=== PATIENT | female | born 1945 | race Caucasian/White ===

== ENCOUNTER 2025-02-03 18:04 | Outpatient (OUT) | payer MEDICARE, OTHER, SELFPAY ==
--- OUTSIDE RECORDS SUMMARY | 2025-02-03 18:13 | XMS_ITS | Clinical Summary ---
Author Organization [facility] Address [address] [place] [address] Care Team Providers Care Wreath Inspector Name Role Phone Myriam Simmons MD Primary Care Provider [phone] Myriam Simmons MD Unavailable Adeel Hernandez LPN Unavailable [phone] Allergies Active AllergyReactionsCriticalityNoted DateCommentsSulfa AntibioticsUnknown, WhicufnarltQpir51/11/2016Sulfamethoxazole-BevivetontywZmckkek03/11/2016 TrimethoprimUnknown,YclmjcmklrbGsqw30/09/2021 Medications MedicationSigDispense QuantityRefillsLast FilledStart DateEnd DateStatus aspirin 81 MG chewable tablet Chew 81 mg 1 (one) time each day at the same time.Active Multiple Vitamins-Minerals (Hair Skin & Nails Advanced) tablet as directed OrallyActive lisinopril 20 MG tablet Indications:Type 2 diabetes mellitus with diabetic neuropathy, without long-term current use of insulin ([facility])Take 1 tablet (20 mg) by mouth in the morning. 90 tablet 1104Active atorvastatin (Lipitor) 10 MG tablet Indications:Type 2 diabetes mellitus with diabetic neuropathy, without long-term current use of insulin ([facility])Take 1 tablet (10 mg) by mouth Daily 90 tablet 1114Active semaglutide (Ozempic) 2 MG/1.5ML solution pen-injector Indications:Diabetic peripheral neuropathy associated with type 2 diabetes mellitus ([facility])Inject 0.5 mg under the skin 1 (one) time per week 4.5 mL //32303112/09/2025ctive Active Problems ProblemNoted DateDiagnosed DatePure rkbaophoqonnogbqallw92/ Assessment & Plan (12/09/2024 12:15 PM EDT): Herniated lumbar intervertebral disc03/12/2023Hepatic rierlqsjw22/27/2023 Assessment & Plan (12/31/2024 2:59 PM EDT): stable Assessment & Plan (09/10/2022 3:02 PM EDT): Stable and working on weight loss Type 2 diabetes mellitus with diabetic gfhoyoplze64/27/2023 Assessment & Plan (12/31/2024 2:59 PM EDT): Lab Results Component Value Date HGBA1C 6.1 (H) 12/09/2024 Toleratin g semaglutide .25 increase to .5 mg Assessment & Plan (09/10/2022 3:02 PM EDT): Diabetic protocols reviewed. Discussed and updated current management plan. Addressed barriers to care, diet, exercise plan and blood sugar testing. Education provided for mediations. Discussed complications which could include blindness, heart disease and kidney disease. Goal of A1C less then 7 and Blood pressure less then 130/80. Acquired hammer toe of left foot09/19/2020 Assessment & Plan (09/10/2022 3:03 PM EDT): stable Thyroid oscfod6607/17/2020 Assessment & Plan (09/10/2022 3:04 PM EDT): US is stable Multinodular goiter (nontoxic)01/17/2020 Assessment & Plan (12/31/2024 2:59 PM EDT): stable Orders: US thyroid; Future Seborrheic phlqjkeyf78/17/2020 Assessment & Plan (09/10/2022 3:05 PM EDT): stable Hvyghgohauzwhjoq43/17/2020 Assessment & Plan (09/10/2022 3:05 PM EDT): Per hematology. Acquired hallux uyefpjq1211/12/2017 Assessment & Plan (09/10/2022 3:03 PM EDT): stable Other chronic pain10/23/2017 Assessment & Plan (09/10/2022 3:02 PM EDT): Per pain management. Still with symptoms of pain with laying down DDD (degenerative disc disease), wuwvpn6008/18/2017 Assessment & Plan (09/10/2022 3:03 PM EDT): Undergoing pain management injecctions Bilateral carpal tunnel jthmblvy30/31/2017 Assessment & Plan (09/10/2022 3:01 PM EDT): Stable at this time Elevated liver ibxxpsg6805/01/2016 Assessment & Plan (09/10/2022 3:05 PM EDT): stable Calculus of mnjzuz5802/06/2016 Overview (09/10/2022): right 9 x 9 x 4 mm proximal UPJ passed spontaneously 2015 Incidental left 2-[address] March 2016. Currently left lower quadrant/inguinal pain. This is worse going from a sitting to standing position and better with activity andwith complete rest. This is not consistent with renal colic and highly unlikely to be related to the nonobstructing stone seen on CT. Plan to get a follow-up KUB in 1 year. 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 Stable on followup CT June 2015. History of jmvtkmnturqq83/16/2016 Assessment & Plan (12/09/2024 12:15 PM EDT): Rhlhfefokwqitz13/18/2016 Assessment & Plan (09/10/2022 3:04 PM EDT): stable Diabetic peripheral neuropathy associated with type 2 diabetes mellitus 09/27/2015 Assessment & Plan (12/10/2024 7:03 AM EDT): Goodbs control could benefit from weight loss due to multiple med conditions Orders: semaglutide (Ozempic) 2 MG/1.5ML solution pen-injector; Inject 0.5 mg under the skin 1 (one) time per week Comprehensive metabolic panel; Future CBC and differential; Future Lipid panel; Future Microalbumin / creatinine urine ratio; Future Hemoglobin A1c; Future Assessment & Plan (09/10/2022 3:01 PM EDT): Stable with treatment Cxymabuiju48/10/2015 Assessment & Plan (09/10/2022 3:04 PM EDT): Dexascan readings every 2 years. Continue weight bearing activities as tolerated Essential dgwqyrtywmxl59/23/2015 Assessment & Plan (12/10/2024 7:03 AM EDT): Good control Assessment & Plan (09/10/2022 3:02 PM EDT): Discussed current management plan and goal BP less then 130/80. Discussed diet, exercise and complications of uncontrolled blood pressure. Importance of weight management with a goal BMI less then 27discussed. Barriers to care and medication compliance discussed. Patient voices understanding of meds. Resolved Problems ProblemNoted DateDiagnosed DateResolved DateBMI 40.0-44.9, adult09/29/2018 09/10/2022 Encounters DateTypeDepartmentCare XdqlUkbzqtexhlf75/10/2025Telephone [facility] [address] [place] [phone] Myriam Simmons MD 01/18/2025Telephone [facility] [address] [facility] [place] [phone] Myriam Simmons MD 01/11/2025Telephone [facility] [address] [place] [phone] Megan Cohen DPM Advice Only (FH POD No show x 2 )12/30/2024 1:40 PM EDTOffice Visit [facility] [address] [place] [address] Myiram Simmons MD Hepatic cirrhosis, unspecified hepatic cirrhosis type, unspecified whether ascites present (HCC) (Primary Dx); Type 2 diabetes mellitus with diabetic neuropathy, without long-term current use of insulin (HCC); Multinodular goiter (nontoxic); Encounter for eipvvybbdwrs54/16/8616Tajhxb67/02/2025Orders Only [facility] [address] [place] [phone] Myriam Simmons MD 12/15/2024Patient Outreach [facility] [address] [place] [address] Adeel Hernandez LPN 12/10/2024Telephone [facility] [address] [facility] [place] [address] Myriam Simmons MD 12/10/2024Results Follow-Up [address] [place] [address] Myriam Simmons MD Comprehensive metabolic panel, CBC and differential, Lipid panel, Additional followed-up results: 11:00 AM EDTOffice Visit [facility] [address] [facility] [place] [address] Myriam Simmons MD Routine general medical examination at a health care facility (Primary Dx); Essential hypertension ; Diabetic peripheral neuropathy associated with type 2 diabetes mellitus (HCC); Pure hypercholesterolemia ; History of hysterectomy; Bowel habit hznewxi7312/09/2024amboo flowsheet [facility] [address] [place] [address] Myriam Simmons MD 12/09/2024Travelfrom Last 3 Months Immunizations ImmunizationAdministration DatesNext DueInfluenza, High Dose Seasonal, Preservative Free12/08/2023,12/30/2019,01/16/2017,11/27/2015,01/24/2015, 01/17/2014,05/10/2013Influenza, High-dose Seasonal, Quadrivalent, Preservative Free12/30/2024,12/19/2021,03/14/2021,01/20/2018Moderna SARS-CoV-2 Vaccination 06/14/2020,1Pneumococcal Conjugate PCV 13103/26/2014Pneumococcal Polysaccharide HLJU7912Pneumococcal, Zedaoyevwwd40/06/2423SCZJ-FNG-7 (COVID-19) vaccine, mRNA, spike protein, LNP, PF, ethan-sucrose, 30 mcg/0.3 mL 12/08/20235435BGUK-KPN-9 (COVID-19) vaccine, mRNA, spike protein, LNP, bivalent, PF 12/19/2021Zoster, Dpikxzxqkiv29/22/2023,06/24/2022 Family History RelationNameStatusCommentsFatherDeceasedMotherDeceased Social History Tobacco UseTypesPacks/DayYears UsedDateSmoking Tobacco: NeverSmokeless Tobacco: Never Tobacco Cessation:Counseling Given: Not Answered Alcohol UseStandard Drinks/WeekCommentsNot Currently0 (1 standard drink = 0.6 oz pure alcohol)caffeine: 1-2 cups per day, pepsi zeroAUDIT-CAnswerDate RecordedQ1: How often do you have a drink containing alcohol?Never09/10/2022Q2: How many drinks containing alcohol do you have on a typical day when you are drinking? Patient does not drink09/10/2022Q3: How often do you have six or more drinks on one occasion?Never09/10/2022HQ-2AnswerDate RecordedPatient Health Questionnaire-2 Izopq956CommentsUnknownSex and Gender InformationValueDate RecordedSex Assigned at BirthNot on fileLegal SexFemale 05/29/2022 7:10 PM EDTGender IdentityNot on fileSexual OrientationNot on file Last Filed Vital Signs Vital SignReadingTime TakenCommentsBlood Roialprc675/7612/30/2024 1:46 PM EDT Gkpyr056612/30/2024 1:46 PM XVVNlvpcajwrnl37 ??C (98.6 ??F)03/12/2023 1:59 PM EST Respiratory Hygh3730 1:46 PM EDTOxygen Xxmojwcecz70%12/30/2024 1:46 PM EDTInhaled Oxygen Concentration--Owactw60.9 kg (196 lb)12/30/2024 1:46 PM EDT Yrdngd209.9 cm (4' 11 )12/30/2024 1:46 PM EDTBody Mass Index39.5912/30/2024 1:46 PM EDT Plan of Treatment DateTypeDepartmentCare Team (Latest Contact Info)Kmdalpjlqkx68/10/2025 1:30 PM ESTOffice Visit [facility] [address] [facility] [address] [place] [address] Rama Ferrer MD [address] [facility] [address] [place] [address] 03/01/2025 1:40 PM ESTOffice Visit [facility] [address] [place] [phone] Myriam Simmons MD [address] [place] [address] Health MaintenanceDue DateLast DoneCommentsCOVID-19 Vaccine ( season) , 12/19/2021, 09/05/2021, Additional history existsDiabetes: Urine Protein Mphrdehmm65, 05/29/2022, 02/27/2021, Additional history existsDiabetes: Hemoglobin A1C, 09/04/2023, 06/04/2023, Additional history existsDiabetes: Retinopathy Ypawrbzvo83/24/2026 04/09/2024, 03/11/2023, 11/19/2017Medicare Annual Wellness (AWV)12/09/2025 12/09/2024, 12/08/2023, 12/08/2023, Additional history existsPneumococcal Vaccine: 65+ VvtitVgyhfrgwe92/10/2015, 01/20/2015, 11/11/2011Influenza Vaccine Pdcyntedz14/16/2025, 12/08/2023, 12/19/2021, Additional history exists Procedures Procedure NamePriorityDate/TimeAssociated DiagnosisCommentsTSH W/REFLEX TO FT4 Efdvjxi2612/09/2024 11:33 AM EDT Bowel habit changes HEMOGLOBIN I4EHbtende55/25/2025 11:33 AM EDT Diabetic peripheral neuropathy associated with type 2 diabetes mellitus (HCC) LIPID BYUWMUcrisqr67/25/2025 11:33 AM EDT Diabetic peripheral neuropathy associated with type 2 diabetes mellitus (HCC) CBC (INCLUDES DIFF/PLT)Sdadbcj3312/09/2024 11:33 AM EDT Diabetic peripheral neuropathy associated with type 2 diabetes mellitus (HCC) COMPREHENSIVE METABOLIC JMIWWCaldtua09/25/2025 11:33 AM EDT Diabetic peripheral neuropathy associated with type 2 diabetes mellitus (HCC) DIABETIC RETINOPATHY SCREENING - OU - BOTH TRJWPginbst70/24/2025 8:32 AM EST MICROALBUMIN / CREATININE URINE ENPJZLovutsc26/23/2024 4:02 PM EDT Type 2 diabetes mellitus with diabetic neuropathy, without long-term current use of insulin (HCC) from Last 3 Months or Most Recently Relevant to Health Maintenance Results * TSH W/REFLEX TO FT4 (12/09/2024 11:33 AM EDT)ComponentValueRef RangeTest MethodAnalysis TimePerformed AtPathologist SignatureTSH W/REFLEX TO FT41.84 0.40 - 4.50 mIU/LQUESTSpecimen (Source)Anatomical Location / Laterality Collection Method / VolumeCollection TimeReceived Time12/09/2024 11:33 AM EDT 12/09/2024 11:33 AM EDT Narrative [facility] - 12/10/2024 7:33 AM EDT COLLECTION KIT GIVEN TO PATIENT. PATIENT ADVISED TO RETURN. Resulting Agency Comment Performing Organization Information ?Site ID: QPT ?Name: [employer] [facility] ?Address: [address] [place] [address], [address] [place] [phone] ?Director: Sharad Suarez MD Authorizing ProviderResult TypeResult StatusMyriam Simmons MDLAB BLOOD ORDERABLES Final ResultPerforming OrganizationAddressCity/State/ZIP CodePhone Number [facility] * (ABNORMAL) CBC and differential (12/09/2024 11:33 AM EDT)ComponentValueRef RangeTest MethodAnalysis TimePerformed AtPathologist SignatureWHITE BLOOD CELL COUNT5.53.8 - 10.8 Thousand/uLQUESTRED BLOOD CELL COUNT4.713.80 - 5.10 Million/oZNMPGUKZTGZWGQLQ94.411.7 - 15.5 g/sEWUKUFWLHYAYEBGG67.735.0 - 45.0 % USIOCAQH61.980.0 - 100.0 xAFPGEDYAE32.627.0 - 33.0 naAWBJEJVOP29.232.0 - 36.0 g/dLQUESTComment: For adults, a slight decrease in the calculated MCHC value (in the range of 30 to 32 g/dL) is most likely not clinically significant; however, it should be interpreted with caution in correlation with other red cell parameters and the patient's clinical condition. RDW14.311.0 - 15.0 %QUESTPLATELET EZPKJ298(L)140 - 400 Thousand/pHRSCEQNAU03.8 7.5 - 12.5 fLQUESTABSOLUTE NEUTROPHILS3,0801,500 - 7,800 cells/uLQUESTABSOLUTE LYMPHOCYTES1,014530 - 3,900 cells/uLQUESTABSOLUTE HOIATBIIP141025 - 950 cells/uL QUESTABSOLUTE BOXCCMMMKMO62294 - 500 cells/uLQUESTABSOLUTE ZDADNFAVQ335 - 200 cells/mCTAMLEYHUSRVTMHEA75%XOTLSMVXZPTTMMTP56.9%QUESTMONOCYTES6.8%QUEST EOSINOPHILS2.6%QUESTBASOPHILS0.7%QUESTSpecimen (Source)Anatomical Location / LateralityCollection Method / VolumeCollection TimeReceived TimeBloodVenous blood specimen / Kazhksb0712/09/2024 11:33 AM EDT12/09/2024 11:33 AM EDT Narrative [facility] - 12/10/2024 7:33 AM EDT COLLECTION KIT GIVEN TO PATIENT. PATIENT ADVISED TO RETURN. Resulting Agency Comment Performing Organization Information ?Site ID: QPT ?Name: [employer] [facility] ?Address: [address] [place] [address], [address] [place] [phone] ?Director: Sharad Suarez MD Authorizing ProviderResult TypeResult StatusMyriam Simmons MDLAB BLOOD ORDERABLES Final ResultPerforming OrganizationAddressCity/State/ZIP CodePhone Number [facility] * (ABNORMAL) Hemoglobin A1c (12/09/2024 11:33 AM EDT)ComponentValueRef RangeTest MethodAnalysis TimePerformed AtPathologist SignatureHemoglobin A1C6.1(H)<5.7 % QUESTComment: For someone without known diabetes, a hemoglobin A1c value between 5.7% and 6.4% is consistent with prediabetes and should be confirmed with a follow-up test. For someone with known diabetes, a value <7% indicates that their diabetes is well controlled. A1c targets should be individualized based on duration of diabetes, age, comorbid conditions, and other considerations. This assay result is consistent with an increased risk of diabetes. Currently, no consensus exists regarding use of hemoglobin A1c for diagnosis of diabetes for children. Specimen (Source)Anatomical Location / LateralityCollection Method / Volume Collection TimeReceived TimeBloodVenous blood specimen / Kyoynrp8312/09/2024 11:33 AM EDT12/09/2024 11:33 AM EDT Narrative [facility] - 12/10/2024 7:33 AM EDT COLLECTION KIT GIVEN TO PATIENT. PATIENT ADVISED TO RETURN. Resulting Agency Comment Performing Organization Information ?Site ID: QPT ?Name: [employer] [facility] ?Address: [address] [place] [address], [address] [place] [phone] ?Director: Sharad Suarez MD Authorizing ProviderResult TypeResult StatusMyriam Simmons MDLAB BLOOD ORDERABLES Final ResultPerforming OrganizationAddressCity/State/ZIP CodePhone Number [facility] * Lipid panel (12/09/2024 11:33 AM EDT)ComponentValueRef RangeTest Method Analysis TimePerformed AtPathologist SignatureCHOLESTEROL, VAFNF085<200 mg/dL QUESTHDL MGIAJNRKGYL95> OR = 50 mg/vZAULHKZNZAQXGOMTYHN885<150 mg/dLQUESTLDL HJTLORLKDBX40rk/dL (calc)QUESTComment: Reference range: <100 Desirable range <100 mg/dL for primary prevention; <70 mg/dL for patients with CHD or diabetic patients with > or = 2 CHD risk factors. LDL-C is now calculated using the Kem-Filiberto calculation, which is a validated novel method providing better accuracy than the Friedewald equation in the estimation of LDL-C. Kem GARRISON et al. MANOHAR. 2013;310(19): 4989-6756 (http://education.Blossom.Freebeepay/faq/NDD994) CHOL/HDLC RATIO2.5<5.0 (calc)QUESTNON HDL COYLMHWMIJE26<130 mg/dL (calc)QUEST Comment: For patients with diabetes plus 1 major ASCVD risk factor, treating to a non-HDL-C goal of <100 mg/dL (LDL-C of <70 mg/dL) is considered a therapeutic option. Specimen (Source)Anatomical Location / LateralityCollection Method / Volume Collection TimeReceived TimeBloodVenous blood specimen / Yltcedd0712/09/2024 11:33 AM EDT12/09/2024 11:33 AM EDT Narrative [facility] - 12/10/2024 7:33 AM EDT COLLECTION KIT GIVEN TO PATIENT. PATIENT ADVISED TO RETURN. Resulting Agency Comment Performing Organization Information ?Site ID: QPT ?Name: [employer] [facility] ?Address: [address] [place] [address], [address] [place] [phone] ?Director: Sharad Suarez MD Authorizing ProviderResult TypeResult StatusMyriam BLOCK BLOOD ORDERABLES Final ResultPerforming OrganizationAddressCity/State/ZIP CodePhone Number [facility] * Comprehensive metabolic panel (12/09/2024 11:33 AM EDT)ComponentValueRef Range Test MethodAnalysis TimePerformed AtPathologist YzinnkfndLsrwzqb7996 - 99 mg/dLQUESTComment: ? Fasting reference interval UEN160 - 25 mg/dLQUESTCreatinine0.770.60 - 1.00 mg/uUAQBIAOHFR30> OR = 60 mL/min/1.45o7FYYDYKJJ/CREATININE RATIOSEE NOTE: (calc)QUESTComment: ?? Not Reported: BUN and Creatinine are within ?? reference range. ? Tlqjav552612 - 146 mmol/LQUESTPotassium, Bld4.23.5 - 5.3 mmol/OORLLHHeynwndc276 98 - 110 mmol/LQUESTCarbon Hsvvoex6585 - 32 mmol/TURLPQYugoeyh14.08.6 - 10.4 mg/dLQUESTPROTEIN, TOTAL7.06.1 - 8.1 g/dLQUESTALBUMIN4.33.6 - 5.1 g/dLQUEST GLOBULIN2.71.9 - 3.7 g/dL (calc)QUESTALBUMIN/GLOBULIN RATIO1.61.0 - 2.5 (calc) QUESTBILIRUBIN, TOTAL1.20.2 - 1.2 mg/dLQUESTALKALINE USUYKCKGELY1923 - 153 U/L RUHNDACM7433 - 35 U/DYUSJRHJY699 - 29 U/LQUESTSpecimen (Source)Anatomical Location / LateralityCollection Method / VolumeCollection TimeReceived TimeBlood Venous blood specimen / Ojaxxhw0112/09/2024 11:33 AM EDT12/09/2024 11:33 AM EDT Narrative [facility] - 12/10/2024 7:33 AM EDT COLLECTION KIT GIVEN TO PATIENT. PATIENT ADVISED TO RETURN. Resulting Agency Comment Performing Organization Information ?Site ID: QPT ?Name: [facility] ?Address: [address] [place] [address], [address] [place] [phone] ?Director: Sharad Suarez MD Authorizing ProviderResult TypeResult StatusMyriam Simmons MDLAB BLOOD ORDERABLES Final ResultPerforming OrganizationAddressCity/State/ZIP CodePhone Number [facility] * Diabetic Retinopathy Screening - OU - Both Eyes (04/09/2024 8:32 AM EST) Anatomical RegionLateralityModalityHeadOther Narrative Authorizing ProviderResult TypeResult StatusMyriam Simmons MDOPHTH PHOTOGRAPHY Final Result * (ABNORMAL) Microalbumin / creatinine urine ratio (12/08/2023 4:02 PM EDT) ComponentValueRef RangeTest MethodAnalysis TimePerformed AtPathologist SignatureCREATININE, RANDOM AGCJH1319 - 275 mg/dLQUESTALBUMIN, URINE3.4See Note: mg/dLQUESTComment: Reference Range: Reference Range Not established ALBUMIN/CREATININE RATIO, RANDOM URINE52(H)<30 mg/g creatQUESTComment: The ADA defines abnormalities in albumin excretion as follows: Albuminuria Category ?Result (mg/g creatinine) Normal to Mildly increased <30 Moderately increased ? 30-299 Severely increased > OR = 300 The ADA recommends that at least two of three specimens collected within a 3-6 month period be abnormal before considering a patient to be within a diagnostic category. Specimen (Source)Anatomical Location / LateralityCollection Method / Volume Collection TimeReceived TimeUrineUrine specimen obtained by clean catch procedure / Dszrdxa7512/08/2023 4:02 PM EDT12/09/2023 6:07 AM EDT Narrative [facility] - 12/09/2023 2:13 PM EDT SPLIT 12/08/2023 FROM [id number] Resulting Agency Comment Performing Organization Information ?Site ID: QPT ?Name: [facility] ?Address: [address] [place] [phone] ?Director: Sharad Suarez MD Authorizing ProviderResult TypeResult Maureen Porter [facility] URINE ORDERABLES Final ResultPerforming OrganizationAddressCity/State/ZIP CodePhone Number [facility] from Last 3 Months or Most Recently Relevant to Health Maintenance Insurance Care Teams Team MemberRelationshipSpecialtyStart DateEnd Myriam Simmons MD [address] [place], [place] [phone] PCP - GeneralFamily Medicine09/09/22 Myriam Simmons MD [address] [place], [place] [phone] PCP - [facility]05/16/23 Adeel Hernandez LPN [id number] [facility] [address] [place] [id number] Licensed Practical NurseFamily Hrsymvcj48/1/25
--- OUTSIDE RECORDS SUMMARY | 2025-02-03 18:13 | XMS_ITS | Clinical Summary ---
Author Organization Le[place] tem Address [id number] [address] [place] [address] Care Team Providers Care Heel Emery Buffer Name Role Phone Myriam Simmons MD Primary Care Provider [phone] Allergies Active AllergyReactionsCriticalityNoted DateComments Sulfamethoxazole-Ehybidujslyb74/11/2016Sulfa (Sulfonamide Antibiotics)01/26/2016 Medications MedicationSigDispense QuantityRefillsLast FilledStart DateEnd DateStatus metFORMIN (GLUCOPHAGE) 500 mg tablet Take 2 tablets (1,000 mg total) by mouth in the morning and 2 tablets (1,000 mg total) in the evening. Take with meals.Active aspirin 81 mg chewable tablet Chew 1 tablet (81 mg total) and swallow in the morning.Active potassium gluconate 550 mg (90 mg) tablet Take 2 mEq by mouth daily.Active MULTIVITAMIN WITH MINERALS (HAIR,SKIN AND NAILS ORAL) Take 1 tablet by mouth once daily.Active cholecalciferol, vitamin D3, 25 mcg (1,000 unit) capsule Take 1,000 Units by mouth daily.Active atorvastatin (LIPITOR) 10 mg tablet 06/24/2020ctive lisinopriL (PRINIVIL,ZESTRIL) 20 mg tablet Take 1 tablet (20 mg total) by mouth in the morning.Active ibuprofen (ADVIL,MOTRIN) 200 mg tablet Take 200 mg by mouth every 6 (six) hours as needed for pain.Active CEPHalexin (KEFLEX) 500 mg capsule Take 1 capsule (500 mg total) by mouth in the morning and 1 capsule (500 mg total) before bedtime. Do all this for 5 days. 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 Stable on followup CT June 2015. Calculus of gpnpro3502/06/2016 Overview (08/13/2016): right 9 x 9 x 4 mm proximal UPJ passed spontaneously 2015 Incidental left 2-[address] March 2016. Currently left lower quadrant/inguinal pain. Thisis worse going from a sitting to standing position and better with activity and with complete rest.This is not consistent with renal colic and highly unlikely to be related to the nonobstructing stone seen on CT. Plan to get a follow-up KUB in 1 year. Encounters DateTypeDepartmentCare VmgeBxcqqvylrer76/06/2025Telephone [facility], A Department of [address] [phone] Consultants, [facility] 01/19/2025 8:25 AM EST - 01/19/2025 2:04 PM [facility] [address] [place] [address] Nevaeh Cardozo MD Diarrhea, unspecified type (Primary Dx); Acute cystitis with hematuria; Abnormal CT scan Discharge Disposition: Home01/19/2025Travelfrom Last 3 Months Family History Medical HistoryRelationNameCommentsHeart diseaseFatherCancerMotherRelationName StatusCommentsFatherDeceasedMotherDeceased Social History Tobacco UseTypesPacks/DayYears UsedDateSmoking Tobacco: NeverSmokeless Tobacco: NeverAlcohol UseStandard Drinks/WeekCommentsNo0 (1 standard drink = 0.6 oz pure alcohol)ChildcareAnswerDate VddbgfwfQgrrkrgwuZvcjrmg90/12/2019EmploymentAnswer Date ReiqpkfnUfdqikknrpMefekgm98/12/2019Hunger ScreeningAnswerDate Recorded Within the past 12 months we worried whether our food would run out before we got money to buy more.Never True01/19/2025Within the past 12 months the food we bought just didn't last and we didn't have money to get more.Never True 01/19/2025Purpose - LifeAnswerDate RecordedPurpose and direction in lifeUnknown 1CommentsNoSex and Gender InformationValueDate RecordedSex Assigned at BirthNot on fileLegal XkiKokyyi17/06/2015 11:36 AM EDTGender IdentityNot on fileSexual OrientationNot on file Last Filed Vital Signs Vital SignReadingTime TakenCommentsBlood Vtzmgtla662/7601/19/2025 12:46 PM EST Rppio347101/19/2025 12:46 PM WHKMujwnpanrdq23.5 ??C (97.7 ??F)01/19/2025 8:33 AM ESTRespiratory Arqt103303/21/2024 12:46 PM ESTOxygen Xpzwghtqjs78%01/19/2025 12:46 PM ESTInhaled Oxygen Concentration--Wsezis24.2 kg (190 lb)01/19/2025 8:33 AM EST Bzefyy641.4 cm (5')01/19/2025 8:33 AM ESTBody Mass Index37. 8:33 AM EST Plan of Treatment Health MaintenanceDue DateLast DoneCommentsDepression Tnmooqmlg00/23/1958 DTaP,Tdap and Td Vaccines (1 - Tdap)1964Fall Risk Neqbpvznc16/23/2011RSV ( or age 60+ yrs) (1 - 1-dose 75+ series)2020OVID-19 Vaccine (7 - 2024- season)5012/08/2023, 12/19/2021, 09/05/2021, Additional history existsTobacco Lcgvpywml31Zoster (Shingles) VaccineCompleted 09/05/2022, 06/24/2022Influenza OwdsmvmCqblweseb61/16/2025, 12/08/2023, 12/19/2021, Additional history exists Medical Devices ImplantedTypeAreaManufacturerDevice IdentifierShelf Expiration DateModel / Serial / LotLens 21.5 Diopter - [id number] Implanted:Qty: 1 [facility] 09/10/2016 [facility] [employer] [id number] / [id number] / Lens 22.0 Diopter - [id number] Implanted:Qty: 1 on 10/15/2016 by Nevaeh Pimentel MD at [facility]: [id number] / [id number] / Procedures Procedure NamePriorityDate/TimeAssociated DiagnosisCommentsPOCT NURSING URINE MACROSCOPIC GIPinnprm89/05/2025 12:[address] ABDOMEN AND PELVIS W KXCNLFNT42/05/2025 10:44 AM EST SARS/FLU A+B/RSV BY NAAT/MOLECULAR (M4RT COLLECTION TUBE)STAT103/21/2024 9:21 AM EST YPYPKCXUVUTXG45/05/2025 9:08 AM EST CBC WITH AUTO NZEIOZWCFVCRKZPF27/05/2025 9:08 AM EST COMPREHENSIVE METABOLIC JJWKRHGHO58/05/2025 9:08 AM EST HMPGSQGTEW44/05/2025 9:08 AM EST EXTRA TUBES BLUE BFAPhrrexb87/05/2025 9:05 AM EST EXTRA IXXCVPlvyjoa83/05/2025 9:05 AM EST from Last 3 Months Results * (ABNORMAL) POCT Nursing Urine Macroscopic UA (01/19/2025 12:47 PM EST) ComponentValueRef RangeTest MethodAnalysis TimePerformed AtPathNorthern Inyo Hospital Urine Specific Gravity1.0201.010, 1.015, 1.020, 1.6453701/19/2025 12:50 PM ESTPROPROVID[facility] Urine Leukocyte Esterase Small(A)Toderhaj14/05/2025 12:50 PM ESTPROPROVIDENCE [facility] Urine NitritePositive(A)Ovbkudyv23/05/2025 12:50 PM ESTPROPROVIDENCE [facility] Urine pH5.55.0, 6.0, 6.5, 7.0, 7.5, 8.0, 8.5, 5.5 01/19/2025 12:50 PM ESTPROPROVIDENCE [facility] Urine Knzmwny10 mg/dL(A)Sbjmoyez25/05/2025 12:50 PM ESTPROMEDIMENLO [facility]ARK [facility] Urine QnbwrzzWgrtvleoZffvatkq17/05/2025 12:50 PM ESTPROPROVIDENCE [facility] Urine EwyunypTdgoiaukRlcufqwr40/05/2025 12:50 PM ESTPROPROVIDENCE [facility] Urine Urobilinogen0.2 E.U./dL01/19/2025 12:50 PM ESTPROPROVIDENCE [facility] Urine BilirubinNegativeNegative 01/19/2025 12:50 PM ESTPAR[facility]ALTH Urine Blood/HGB Trace(A)Ctsqyxtr01/05/2025 12:50 PM [facility] Specimen (Source)Anatomical Location / LateralityCollection Method / Volume Collection TimeReceived QeabCmfnt66/05/2025 12:47 PM EST01/19/2025 12:50 PM EST Narrative Authorizing ProviderResult TypeResult StatusSusan E Chehade MDPOINT OF CARE TEST ORDERABLESFinal ResultPerforming OrganizationAddressCity/State/ZIP CodePhone Number [facility] [address] [place] [address], [place] * CT abdomen and pelvis with contrast (01/19/2025 10:44 AM EST)Anatomical Region LateralityModalityBody, Abdomen, Body CoveraN/AComputed TomographySpecimen (Source)Anatomical Location / LateralityCollection Method / VolumeCollection TimeReceived Time01/19/2025 10:47 AM EST Narrative 01/19/2025 10:54 AM EST CLINICAL INFORMATION: lower abd cramping, diarrhea TECHNIQUE: CT ABDOMEN AND PELVIS W CONT CT images of the abdomen and pelvis are obtained. Intravenous contrast was administered. Comparisonis made prior exam dated 04/05/2016. Limited images lung bases are clear. There are varices noted near the gastroesophageal junction which are not apparent on prior exam. There is questionable cirrhotic hepatic morphology with slightly nodular contour, primarily along caudal. Hypoattenuationwithin the cephalad aspect of the SMV just caudal to the portal vein noted most consistent with thrombus. Portal vein otherwise opacifies normally. Distal vessels appear to enhance normally as well. SMA and celiac show atherosclerotic changes without enhancement abnormality. There is a 5.9 cm cystic-appearing lesion within the left adnexa with solitary calcification. Although most likely benign,pelvic ultrasound recommended for further evaluation. Colonic diverticula present without appreciable wall thickening or pericolonic stranding. No gastric distention seen. Patient is postcholecystectomy. Moderate to severe thoracolumbar degenerative changes appreciated. Anterior abdominalhernia noted without bowel incarceration. IMPRESSION: Nonocclusive thrombus within cephalad aspect of the SMV. 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 Please correlate clinically. 5.9 cm left adnexal cyst. Pelvic ultrasound recommended. Diverticulosis. All CT scans at this facility use dose modulation, iterative reconstruction, and/or weight based dosing when appropriate to reduce radiation dose to as low as reasonably achievable. Finalized by Suleman Pope MD on 01/19/2025 10:54 AM Procedure Note Suleman Pope MD - 01/19/2025 CLINICAL INFORMATION: lower abd cramping, diarrhea TECHNIQUE: CT ABDOMEN AND PELVIS W CONT CT images of the abdomen and pelvis are obtained. Intravenous contrast was administered. Comparison is made prior exam dated 04/05/2016. Limitedimages lung bases are clear. There are varices noted near thegastroesophageal junction which are not apparent on prior exam. There isquestionable cirrhotic hepatic morphology with slightly nodular contour, primarilyalong caudal. Hypoattenuation within the cephalad aspect of the SMV justcaudal to the portal vein noted most consistent with thrombus. Portal veinotherwise opacifies normally. Distal vessels appear to enhance normally aswell. SMA and celiac show atherosclerotic changes without enhancementabnormality. There is a 5.9 cm cystic-appearing lesion within the leftadnexa with solitary calcification. Although most likely benign, pelvicultrasound recommended for further evaluation. Colonic diverticula presentwithout appreciable wall thickening or pericolonic stranding. No gastricdistention seen. Patient is postcholecystectomy. Moderate to severethoracolumbar degenerative changes appreciated. Anterior abdominal hernianoted without bowel incarceration. IMPRESSION: Nonocclusive thrombus within cephalad aspect of the SMV. 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 5.9 cm left adnexal cyst. Pelvic ultrasound recommended. Diverticulosis. All CT scans at this facility use dose modulation, iterativereconstruction, and/or weight based dosing when appropriate to reduceradiation dose to as low as reasonably achievable. Finalized by Suleman Pope MD on 01/19/2025 10:54 AM Authorizing ProviderResult TypeResult StatusSuemmanuel Cardozo MDALL[facility]HE[facility] ORDERABLES Final Result * SARS/FLU A+B/RSV by NAAT/Molecular (M4RT Collection Tube) (01/19/2025 9:21 AM EST)ComponentValueRef RangeTest MethodAnalysis TimePerformed AtPathologist SignatureFLU A ZVVVkdyuhbeEgqeohgr50/05/2025 10:45 AM ESTPROSAN GABRIEL VALLEY MEDICAL CENTERFLU B GNNHuguyapvUrwrxnyy49/05/2025 10:45 AM ESTMARION HOSPITALRSV BY YTUWbjicwosJnynvara49/05/2025 10:45 AM EST [facility] COV 2 BY PCRNot DetectedNot Detected 01/19/2025 10:45 AM [facility]USpecimen (Source) Anatomical Location / LateralityCollection Method / VolumeCollection Time Received TimeSwabNasopharyngeal structure / Tkcqazv0701/19/2025 9:21 AM EST 01/19/2025 9:57 AM EST Narrative [facility] - 01/19/2025 10:45 AM EST The Xpert Xpress SARS-CoV-2/Flu/RSV Plus test is a rapid, multiplexed real-time RT-PCR test intended for the simultaneous qualitative detection and differentiation of SARS-CoV-2, influenza A, influenza B and respiratory syncytial virus (RSV) viral RNA from individuals suspected of respiratory viral infection consistent with COVID-19 by Their healthcare provider. This test has not been validated in asymptomatic patients. The Xpert Xpress SARS-CoV-2 test is intended for use by qualified and trained operators who are performing tests using either [employer] DX or [employer] systems and is limited to laboratories that meet the CLIA requirements to perform high and moderate complexity tests. The Xpert Xpress SARS-CoV-2/Flu/RSV Plus is only for use under the Food and Drug Administration's Emergency Use Authorization. Results are for the simultaneous detection and differentiation of SARS-CoV-2, influenza A, influenza B and RSV nucleic acids in clinical specimens. SARS-CoV-2, influenza A, influenza B and RSV RNA identified by this test are generally detectable in upper respiratory samples during the acute phase of infection. Positive results are Indicative of the presence of the identified virus, but do not rule out bacterial infection or co-infection with other pathogens not detected by this test. Clinical correlation with patient history and other diagnostic information is necessary to determine patient infection status. The agent detected may not be the definite cause of disease. Negative results do not preclude SARS-CoV-2, influenza A, influenza B and RSV infection and should not be used as the sole basis for treatment or other patient management decisions. Negative results must be combined with clinical observations, patient history and epidemiological information. An Invalid result may occur with specimen-associated inhibition unable to be resolved with specimen repeat. Fact Sheet for Healthcare Providers: ?? https://www.Promoter.io.gov/media/060991/download ? Fact Sheet for Patients: ?? https://www.Promoter.io.gov/media/472201/download ?? Authorizing ProviderResult TypeResult StatusSusan E Chehade MDMICROBIOLOGY - GENERAL ORDERABLESFinal ResultPerforming OrganizationAddressCity/State/ZIP Code Phone Number [facility] [address] [place] [address], * (ABNORMAL) CBC auto differential (01/19/2025 9:08 AM EST)ComponentValueRef RangeTest MethodAnalysis TimePerformed AtPathologist SignatureWBC5.64 - 11 X10^9/L103/21/2024 9:18 AM [facility]OSPITALRBC Count4.90 3.8 - 5.2 X10^12/L103/21/2024 9:18 AM [facility] Rfwdvqrjgo40.711.7 - 15.5 g/dL01/19/2025 9:18 AM ESTMARION HOSPITALHematocrit44.435 - 47 %01/19/2025 9:18 AM [facility]ITALMCV9180 - 100 fL01/19/2025 9:18 AM [facility]ITALMCH30.027 - 34 pg01/19/2025 9:18 AM [facility]ITALMCHC33.032 - 36 g/dL01/19/2025 9:18 AM ESTMARION HOSPITALRDW14.811.5 - 15 %01/19/2025 9:18 AM [facility] HOSPITALPlatelet Jatom431(L)150 - 450 X10^9/L103/21/2024 9:18 AM EST [facility]ITALMPV9.97 - 12 fL01/19/2025 9:18 AM EST [facility]ITALNeutrophils %67.2%01/19/2025 9:18 AM EST [facility]ITALLymphocytes %22.1%01/19/2025 9:18 AM EST [facility]ITALMonocytes %7.7%01/19/2025 9:18 AM EST [facility] HOSPITALEosinophils %2.6%01/19/2025 9:18 AM EST [facility]ITALBasophils %0.4%01/19/2025 9:18 AM EST [facility]ITALNeutrophils Absolute (A)3.81.5 - 6.6 X10^9/L103/21/2024 9:18 AM ESTMARION HOSPITALLymphocytes Absolute1.21.0 - 3.5 X10^9/L103/21/2024 9:18 AM ESTPROSAN GABRIEL VALLEY MEDICAL CENTERMonocytes Absolute0.40.0 - 0.9 X10^9/L103/21/2024 9:18 AM ESTGALION COMMUNITY HOSPITAL HOSPITALEosinophils Absolute0.10.0 - 0.4 X10^9/L103/21/2024 9:18 AM ESTMARION HOSPITALBasophils Absolute0.00.0 - 0.2 X10^9/L103/21/2024 9:18 AM [facility]OS[facility]ITALDifferential TypeAUTOMATED URQQJRVCLTGX12/05/2025 9:18 AM [facility]USpecimen (Source)Anatomical Location / LateralityCollection Method / VolumeCollection TimeReceived TimeBloodVenous blood / UnknownVenipuncture / Wibwunc7601/19/2025 9:08 AM EST01/19/2025 9:09 AM EST Narrative Authorizing ProviderResult TypeResult StatusSuemmanuel E Juliane LAWSONLAB BLOOD ORDERABLESFinal ResultPerforming OrganizationAddressCity/State/ZIP CodePhone Number [facility] [address] [facility] [place] [address], * Magnesium (01/19/2025 9:08 AM EST)ComponentValueRef RangeTest MethodAnalysis TimePerformed AtPathologist SignatureMAGNESIUM1.81.8 - 2.6 mg/dL01/19/2025 9:30 AM ESTMet[facility] (Source)Anatomical Location / LateralityCollection Method / VolumeCollection TimeReceived Time BloodVenous blood / UnknownVenipuncture / Tbbmked5001/19/2025 9:08 AM EST 01/19/2025 9:09 AM EST Narrative Authorizing ProviderResult TypeResult StatusSuemmanuel BLOCK BLOOD ORDERABLESFinal ResultPerforming OrganizationAddressCity/State/ZIP CodePhone Number [address] [address], * Lipase (01/19/2025 9:08 AM EST)ComponentValueRef RangeTest MethodAnalysis Time Performed AtPathologist HfzxacfxwKRJIPJ8980 - 40 U/L103/21/2024 9:27 AM EST [facility] (Source)Anatomical Location / LateralityCollection Method / VolumeCollection TimeReceived TimeBloodVenous blood / UnknownVenipuncture / Aeefyoa3101/19/2025 9:08 AM EST01/19/2025 9:09 AM EST Narrative Authorizing ProviderResult TypeResult StatusSuemmanuel BLOCK BLOOD ORDERABLESFinal ResultPerforming OrganizationAddressCity/State/ZIP CodePhone Number [address] [address], * (ABNORMAL) Comprehensive metabolic panel (01/19/2025 9:08 AM EST)Component ValueRef RangeTest MethodAnalysis TimePerformed AtPathologist SignatureSODIUM 178594 - 146 mmol/L103/21/2024 9:30 AM ESTPROSAN [facility] POTASSIUM3.53.5 - 5.0 mmol/L103/21/2024 9:30 AM ESTPROSAN GABRIEL VALLEY MEDICAL CENTERCHLORIDE10898 - 109 mmol/L103/21/2024 9:30 AM ESTPROMEDIBARLOW RESPIRATORY HOSPITALCARBON AOLBZUT4201 - 32 mmol/L103/21/2024 9:30 AM ESTPROMEDIBARLOW RESPIRATORY HOSPITALANION RIX586 - 15 mmol/L103/21/2024 9:30 AM EST [facility]PITALBLOOD UREA CUFZCETL99(H)5 - 27 mg/dL 01/19/2025 9:30 AM [facility] HOSPITALCREATININE0.970.40 - 1.00 mg/dL01/19/2025 9:30 AM [facility]OS[facility]ITALComment: METHOD TRACEABLE TO [facility] OSZIRIFWOCYFQLL932(H)65 - 99 mg/dL01/19/2025 9:30 AM [facility] HOSPITALCALCIUM9.78.5 - 10.5 mg/dL01/19/2025 9:30 AM [facility] HOSPITALTOTAL PROTEIN7.56.0 - 8.0 g/dL 01/19/2025 9:30 AM [facility] HOSPITALALBUMIN3.93.2 - 5.3 g/dL01/19/2025 9:30 AM [facility] HOSPITALALKALINE QITVOWXKUIN5175 - 130 U/L103/21/2024 9:30 AM [facility]ITALAST27<=41 U/L103/21/2024 9:30 AM [facility] ALT24<=31 U/L103/21/2024 9:30 AM [facility] BILIRUBIN,TOTAL1.5(H)0.3 - 1.2 mg/dL01/19/2025 9:30 AM [facility] HOSPITALEGFR Non-Race Wylbhbzyj07(L)>=60 ml/min/1.73sq.m103/21/2024 9:30 AM [facility]OS[facility]ITALComment: eGFR not reported due to non-numeric value for Creatinine. Reported eGFR is based on the CKD-EPI 2020 equation that does not use a race coefficient. Specimen (Source)Anatomical Location / LateralityCollection Method / Volume Collection TimeReceived TimeBloodVenous blood / UnknownVenipuncture / Unknown 01/19/2025 9:08 AM EST01/19/2025 9:09 AM EST Narrative Authorizing ProviderResult TypeResult StatusSuemmanuel BLOCK BLOOD ORDERABLESFinal ResultPerforming OrganizationAddressCity/State/ZIP CodePhone Number [facility] [address] [address], * Light Blue Top (01/19/2025 9:05 AM EST)ComponentValueRef RangeTest Method Analysis TimePerformed AtPathologist SignatureExtra TubeAuto Resulted 01/19/2025 11:01 AM ESTPROMEDICA KAISER FOUNDATION HOSPITALpecimen (Source) Anatomical Location / LateralityCollection Method / VolumeCollection Time Received TimeBloodVenous blood / Qlwrbjb1001/19/2025 9:05 AM EST01/19/2025 9:10 AM EST Narrative Authorizing ProviderResult TypeResult StatusSuemmanuel BLOCK BLOOD ORDERABLESFinal ResultPerforming OrganizationAddressCity/State/ZIP CodePhone Number [facility] [address] [address], from Last 3 Months Insurance Care Teams Team MemberRelationshipSpecialtyStart DateEnd Myriam Simmons MD PCP - GeneralFamily Tcwjpvzp10/22/16
--- OUTSIDE RECORDS SUMMARY | 2025-02-03 18:13 | XMS_ITS | Encounter Summary ---
Author Organization [facility] Address [address] [place] [address] Care Team Providers Care Director Of Publications Name Role Phone Myriam Simmons MD Primary Care Provider Myriam Simmons MD Unavailable Adeel Hernandez LPN Unavailable [phone] Encounter Details DateTypeDepartmentCare Team (Latest Contact Info)Hqoampncuyo84/10/2025Telephone [facility] Family Medicine [address] [place] [address] Myriam Simmons MD [address] [place] [address] Social History Tobacco UseTypesPacks/DayYears UsedDateSmoking Tobacco: NeverSmokeless Tobacco: NeverAlcohol UseStandard Drinks/WeekCommentsNot Currently0 (1 standard drink = 0.6 oz pure alcohol)caffeine: 1-2 cups per day, pepsi zeroAUDIT-CAnswerDate RecordedQ1: How often do you have a drink containing alcohol?Never09/10/2022Q2: How many drinks containing alcohol do you have on a typical day when you are drinking?Patient does not drink09/10/2022Q3: How often do you have six or more drinks on one occasion?Never09/10/2022HQ-2AnswerDate RecordedPatient Health Questionnaire-2 Qcork770CommentsUnknownSex and Gender InformationValueDate RecordedSex Assigned at BirthNot on fileLegal SexFemale 05/29/2022 7:10 PM EDTGender IdentityNot on fileSexual OrientationNot on file documented as of this encounter Miscellaneous Notes * Telephone Encounter - Aubrey Bowie - 01/26/2025 8:21 AM EST PT called Number was given and Miralax was talked about * Telephone Encounter - Tisha Menchaca MA - 01/25/2025 1:35 PM EST Please give patient [phone]. Will call back to schedule with them. * Telephone Encounter - Suni Rizo MA - 01/24/2025 5:25 PM EST Attempted to call patient and vm is not set up. * Telephone Encounter - Mercedez Avendano - 01/24/2025 10:04 AM EST Pt left this vm today at 9:57 am Mrs Sayra Centeno, [phone] I need to get a hold of Dr Simmons. Last week I had diarrhea... this week I am not doing anything. I havent gone once since last morning. Thank you. documented in this encounter Plan of Treatment DateTypeDepartmentCare Team (Latest Contact Info)Ehjxivcuvks01/10/2025 1:30 PM ESTOffice Visit [facility] [address] [facility] [address] [place] [phone] Rama Ferrer MD [address] [facility] [address] [place] [address] 03/01/2025 1:40 PM ESTOffice Visit [facility] Medicine [facility] [place] [address] Myriam Simmons MD [facility] [place], [place] [phone] documented as of this encounter Visit Diagnoses Not on filedocumented in this encounter Additional Health Concerns AssessmentNoted TimePHQ-9 Depression Total Score: 2:00 PM EDT documented as of this encounter Care Teams Team MemberRelationshipSpecialtyStart DateEnd Date Myriam Simmons MD [address] [place], [place] [id number] PCP - GeneralFamily Medicine09/09/22 Myriam Simmons MD [address] [place], [place] [id number] PCP - ACO Reach05/16/23 Adeel Hernandez, [place] [address] [place] [address] Licensed Practical NurseFamily Uidkuyxe93/1/25documented as of this encounter
--- OUTSIDE RECORDS SUMMARY | 2025-02-03 18:13 | XMS_ITS | Encounter Summary ---
Author Organization [facility] tem Address [id number] [address] [place] [address] Care Team Providers Care Director Of Strategic Sourcing Name Role Phone Myriam Simmons MD Primary Care Provider [phone] Encounter Details DateTypeDepartmentCare Team (Latest Contact Info)Htahrnpcwzb51/06/[address]25Telephone [facility], A Department of [address] [phone] Consultants, [facility] [address] [place] [address], [address] [place] [address] Social History Tobacco UseTypesPacks/DayYears UsedDateSmoking Tobacco: NeverSmokeless Tobacco: NeverAlcohol UseStandard Drinks/WeekCommentsNo0 (1 standard drink = 0.6 oz pure alcohol)ChildcareAnswerDate LvgiibelMeodwkiycPwpgxcv09/12/2019EmploymentAnswer Date BrgcewcuHmbragsfzqPlhqujk17/12/2019Hunger ScreeningAnswerDate Recorded Within the past 12 months we worried whether our food would run out before we got money to buy more.Never True01/19/2025Within the past 12 months the food we bought just didn't last and we didn't have money to get more.Never True 01/19/2025Purpose - LifeAnswerDate RecordedPurpose and direction in lifeUnknown 1CommentsNoSex and Gender InformationValueDate RecordedSex Assigned at BirthNot on fileLegal KeuDadwoj94/06/2015 11:36 AM EDTGender IdentityNot on fileSexual OrientationNot on filedocumented as of this encounter Miscellaneous Notes * Telephone Encounter - Christine Qasim - 01/20/2025 11:08 AM EST Referred for diarrhea and abnormal CT of abdomen. I left voice message for Sayra to call the office if she would like to schedule an appointment. * Telephone Encounter - Ellie Sorenson CMA - 01/20/2025 11:08 AM EST FYI Staff Patient called back. - Per patient is very hesitant to travel outside of the [place] area. She mentioned her daughter used to drive her, but has . - Sand Tester offered other GI suggestions like [facility] or even our location in [place]. Per patient was still reluctant due to the traveling beyond [place]. - Sand Tester recommended she contact her PCP, and she may be able to assist her per further near GI Providers. Thank You documented in this encounter Plan of Treatment Not on file documented as of this encounter Visit Diagnoses Not on filedocumented in this encounter Care Teams Team MemberRelationshipSpecialtyStart DateEnd Date Myriam Simmons MD PCP - GeneralFamily Igwpmvxa35/22/16documented as of this encounter
[2025-02-03 19:12] LABS: C. Difficile PCR NEGATIVE
== END 2025-02-03 18:05 | disposition home or self-care (01) ==
LOC: LAB 18:10
PROVIDERS: PCP Registered Nurse; Visit Provider Registered Nurse
DX: K21.9 Gastro-esophageal reflux disease without esophagitis (principal); R10.9 Unspecified abdominal pain; R19.7 Diarrhea, unspecified
CPT/HCPCS: 87045; 87046; 87427; 87493